=== PATIENT | female | born 1965 | race Caucasian/White ===

== ENCOUNTER 2021-05-13 10:14 | Inpatient (IN) | payer MEDICARE, OTHER ==
[~2021-05-13] VITALS: Ht 162.6 cm; Wt 72.1 kg
[~2021-05-13 10:14] MED LIST: NORCO 5-325 TA1 EACH PO
[2021-05-13 12:05] LABS: HEMOGLOBIN 15.9 gm/dl (12.3-15.3); RED BLOOD COUNT 5.06 M/UL (4.00-5.10); WHITE BLOOD COUNT 12.6 K/UL (4.5-11.0)
[2021-05-13 12:51] LABS: BUN/CREATININE RATIO 35 (0-10)
[2021-05-13] MEDS ORDERED: BREZTRI AEROS10.7 GM INH (17:41)
[2021-05-13] MEDS ORDERED: FLONASE ALLER15.8 ML (17:42)
[2021-05-13] MEDS ORDERED: PLAVIX 75 MG TA75 MG PO (17:42)
[2021-05-13] MEDS ORDERED: LASIX20 MG PO (17:42)
[2021-05-13] MEDS ORDERED: GABAPENTIN300 MG PO (17:43)
[2021-05-13] MEDS ORDERED: COMBIVENT RESPIM4 GM INH (17:44)
[2021-05-13] MEDS ORDERED: HYDROCODON-ACE1 EAC6 PO (17:44)
[2021-05-13] MEDS ORDERED: XTAMPZA ER9 MG PO (17:45)
[2021-05-13] MEDS ORDERED: PREDNISONE5 MG PO (17:46)
[2021-05-13] MEDS ORDERED: PROAIR DIGIHAL90 MCG INH (17:47)
[2021-05-13] MEDS ORDERED: ZANAFLEX4 MG PO (17:47)
[2021-05-13] MEDS ORDERED: PROMETHAZINE HC25 M1 PO (17:48)
[2021-05-13] MEDS ORDERED: AMBIEN5 MG PO (17:48)
[2021-05-13] MEDS ORDERED: ALBUTEROL2.5 MG/3 M NEB (17:49)
[2021-05-14 03:24] LABS: HEMOGLOBIN 15.4 gm/dl (12.3-15.3); RED BLOOD COUNT 4.96 M/UL (4.00-5.10)
[2021-05-14 04:26] LABS: BUN/CREATININE RATIO 46 (0-10)
[2021-05-16 03:00] LABS: BUN/CREATININE RATIO 49 (0-10)
[2021-05-16] MEDS ORDERED: MEDROL DOSEPAK 24 MG PO ×2 (09:35→14:12)
[2021-05-16] MEDS ORDERED: NICOTINE PATCH1 EAC1 TD ×2 (09:53→14:12)
== END 2021-05-16 16:30 | disposition home or self-care (01) | DRG 917 ==
LOC: ER1 10:14 → PROG CARE 14:44 → CDU 14:44 → PROG CARE 18:04
PROVIDERS: Internal Medicine Infectious Disease; Nurse Practitioner; ADMIT Internal Medicine
PROC: 5A09457 Assistance with Respiratory Ventilation, 24-96 Consecutive Hours, Continuous Positive Airway Pressure (ICD-10-PCS; principal; 2021-05-13)
DX: T40.602A Poisoning by unspecified narcotics, intentional self-harm, initial encounter (principal); J96.21 Acute and chronic respiratory failure with hypoxia; Z20.822 Contact with and (suspected) exposure to COVID-19; J96.22 Acute and chronic respiratory failure with hypercapnia; J44.1 Chronic obstructive pulmonary disease with (acute) exacerbation; I10 Essential (primary) hypertension; E78.5 Hyperlipidemia, unspecified; T48.202A Poisoning by unspecified drugs acting on muscles, intentional self-harm, initial encounter; G89.4 Chronic pain syndrome; F17.210 Nicotine dependence, cigarettes, uncomplicated; S39.012A Strain of muscle, fascia and tendon of lower back, initial encounter; Z71.6 Tobacco abuse counseling; Z99.81 Dependence on supplemental oxygen; Z90.49 Acquired absence of other specified parts of digestive tract; Z90.710 Acquired absence of both cervix and uterus; Z91.010 Allergy to peanuts; Z86.73 Personal history of transient ischemic attack (TIA), and cerebral infarction without residual deficits
CPT/HCPCS: 0240U; 36415; 36600; 71045; 80048; 80053; 82550; 82553; 82803; 83605; 83874; 83880; 84484; 85025; 85379; 85610; 85730; 86140; 87040; 93005; 94640; 94660; 94664; 94760; 96365; 96366; 96375; 97161; 99285; J0456; J0696; J1100; J1650; J1885; J2270; J2405; J2920; J2930; J7070; Q9967

== ENCOUNTER 2021-06-15 23:44 | Emergency (ER) | payer MEDICARE, OTHER ==
[~2021-06-15 23:44] MED LIST changes: +ALBUTEROL2.5 MG/3 M NEB; +AMBIEN5 MG PO; +BREZTRI AEROS10.7 GM INH; +COMBIVENT RESPIM4 GM INH; +FLONASE ALLER15.8 ML; +GABAPENTIN300 MG PO; +HYDROCODON-ACE1 EAC6 PO; +LASIX20 MG PO; +MEDROL DOSEPAK 24 MG PO; +NICOTINE PATCH1 EAC1 TD; +PLAVIX 75 MG TA75 MG PO; +PREDNISONE5 MG PO; +PROAIR DIGIHAL90 MCG INH; +PROMETHAZINE HC25 M1 PO; +XTAMPZA ER9 MG PO; +ZANAFLEX4 MG PO
[2021-06-16 01:11] LABS: HEMOGLOBIN 15.1 gm/dl (12.3-15.3); RED BLOOD COUNT 5.08 M/UL (4.00-5.10)
[2021-06-16 02:17] LABS: BUN/CREATININE RATIO 30 (0-10)
[2021-06-16] MEDS ORDERED: ENDOCET 5-3251 EACH PO (09:29)
== END 2021-06-16 09:40 | disposition home or self-care (01) ==
LOC: ER1 23:44
PROVIDERS: Student in an Organized Health Care Education/Training Program
DX: R07.9 Chest pain, unspecified (principal); R10.9 Unspecified abdominal pain; J44.9 Chronic obstructive pulmonary disease, unspecified; M54.6 Pain in thoracic spine; Z86.73 Personal history of transient ischemic attack (TIA), and cerebral infarction without residual deficits; Z85.828 Personal history of other malignant neoplasm of skin
CPT/HCPCS: 71045; 80048; 82550; 82553; 83880; 84484; 85025; 85379; 93005; 96374; 96376; 99285; J1170; Q9967

== ENCOUNTER → 2021-06-18 | Outpatient (CLI) | payer MEDICARE, OTHER ==
[~2021-06-18] MED LIST changes: +ENDOCET 5-3251 EACH PO
[2021-06-18 17:34] LABS: BUN/CREATININE RATIO 30 (0-10)
== END ==
LOC: LAB 16:48
PROVIDERS: Internal Medicine Pulmonary Disease
DX: R09.02 Hypoxemia (principal)
CPT/HCPCS: 36415; 36600; 80048; 82803

== ENCOUNTER 2021-09-27 02:16 | Inpatient (IN) | payer MEDICARE, OTHER ==
[~2021-09-27] VITALS: Ht 162.6 cm; Wt 70.0 kg
[~2021-09-27 02:16] MED LIST changes: +HYDROCODON-ACE1 EAC2 PO; -HYDROCODON-ACE1 EAC6 PO
[2021-09-27 03:02] LABS: HEMOGLOBIN 15.2 gm/dl (12.3-15.3); RED BLOOD COUNT 5.11 M/UL (4.00-5.10)
[2021-09-27 03:27] LABS: BUN/CREATININE RATIO 36 (0-10)
[2021-09-27] MEDS ORDERED: ALPRAZOLAM1 MG PO (11:46)
[2021-09-27] MEDS ORDERED: HYDROCODON-ACE1 EAC6 PO (11:47)
[2021-09-27] MEDS ORDERED: LOPRESSOR 25 MG25 MG PO (11:48)
[2021-09-27] MEDS ORDERED: TRELEGY ELLIPT1 EAC1 INH (11:49)
[2021-09-27] MEDS ORDERED: XTAMPZA ER9 MG PO (11:50)
[2021-09-27] MEDS ORDERED: PRENATAL VITAM1 EAC8 PO (11:55)
[2021-09-28 04:09] LABS: HEMOGLOBIN 14.5 gm/dl (12.3-15.3); RED BLOOD COUNT 4.86 M/UL (4.00-5.10)
[2021-09-28 04:13] LABS: WHITE BLOOD COUNT 8.1 K/UL (4.5-11.0)
[2021-09-28 04:39] LABS: BUN/CREATININE RATIO 49 (0-10)
[2021-09-30 02:22] LABS: HEMOGLOBIN 13.4 gm/dl (12.3-15.3); RED BLOOD COUNT 4.57 M/UL (4.00-5.10); WHITE BLOOD COUNT 9.2 K/UL (4.5-11.0)
[2021-09-30 02:51] LABS: BUN/CREATININE RATIO 62 (0-10)
[2021-10-01 02:11] LABS: BUN/CREATININE RATIO 70 (0-10)
[2021-10-01 03:34] LABS: HEMOGLOBIN 13.3 gm/dl (12.3-15.3); RED BLOOD COUNT 4.52 M/UL (4.00-5.10); WHITE BLOOD COUNT 9.6 K/UL (4.5-11.0)
[2021-10-02 01:49] LABS: HEMOGLOBIN 13.9 gm/dl (12.3-15.3); RED BLOOD COUNT 4.71 M/UL (4.00-5.10); WHITE BLOOD COUNT 10.4 K/UL (4.5-11.0)
[2021-10-02 01:56] LABS: BUN/CREATININE RATIO 67 (0-10)
[2021-10-03 02:17] LABS: HEMOGLOBIN 13.2 gm/dl (12.3-15.3); RED BLOOD COUNT 4.43 M/UL (4.00-5.10); WHITE BLOOD COUNT 11.3 K/UL (4.5-11.0)
[2021-10-03 02:39] LABS: BUN/CREATININE RATIO 78 (0-10)
[2021-10-04 01:38] LABS: HEMOGLOBIN 13.6 gm/dl (12.3-15.3); RED BLOOD COUNT 4.61 M/UL (4.00-5.10); WHITE BLOOD COUNT 13.7 K/UL (4.5-11.0)
[2021-10-04 02:13] LABS: BUN/CREATININE RATIO 66 (0-10)
[2021-10-05 02:10] LABS: HEMOGLOBIN 14.4 gm/dl (12.3-15.3); RED BLOOD COUNT 4.83 M/UL (4.00-5.10); WHITE BLOOD COUNT 16.7 K/UL (4.5-11.0)
[2021-10-05 03:03] LABS: BUN/CREATININE RATIO 60 (0-10)
[2021-10-05 14:10] LABS: HEMOGLOBIN 13.9 gm/dl (12.3-15.3); RED BLOOD COUNT 4.66 M/UL (4.00-5.10); WHITE BLOOD COUNT 15.2 K/UL (4.5-11.0)
[2021-10-05] MEDS ORDERED: LOPRESSOR 25 MG25 MG PO (16:11)
[2021-10-05] MEDS ORDERED: DIAMOX 250 MG250 MG PO (16:11)
[2021-10-05] MEDS ORDERED: COLACE100 MG PO (16:20)
== END 2021-10-05 17:13 | disposition home health service (06) | DRG 189 ==
LOC: ER1 02:16 → CDU 08:58 → PROG CARE 08:58
PROVIDERS: Internal Medicine; Physician Assistant; Physician Assistant Medical; ADMIT Internal Medicine
PROC: 5A09357 Assistance with Respiratory Ventilation, Less than 24 Consecutive Hours, Continuous Positive Airway Pressure (ICD-10-PCS; principal; 2021-09-27)
PROC: 5A09457 Assistance with Respiratory Ventilation, 24-96 Consecutive Hours, Continuous Positive Airway Pressure (ICD-10-PCS; 2021-09-27)
PROC: 5A0935A Assistance with Respiratory Ventilation, Less than 24 Consecutive Hours, High Flow/Velocity Cannula (ICD-10-PCS; 2021-09-30)
PROC: 5A09357 Assistance with Respiratory Ventilation, Less than 24 Consecutive Hours, Continuous Positive Airway Pressure (ICD-10-PCS; 2021-09-30)
PROC: 5A0935A Assistance with Respiratory Ventilation, Less than 24 Consecutive Hours, High Flow/Velocity Cannula (ICD-10-PCS; 2021-09-30)
PROC: 5A09357 Assistance with Respiratory Ventilation, Less than 24 Consecutive Hours, Continuous Positive Airway Pressure (ICD-10-PCS; 2021-09-30)
PROC: 5A0935A Assistance with Respiratory Ventilation, Less than 24 Consecutive Hours, High Flow/Velocity Cannula (ICD-10-PCS; 2021-10-01)
PROC: 5A09357 Assistance with Respiratory Ventilation, Less than 24 Consecutive Hours, Continuous Positive Airway Pressure (ICD-10-PCS; 2021-10-02)
PROC: 5A0935A Assistance with Respiratory Ventilation, Less than 24 Consecutive Hours, High Flow/Velocity Cannula (ICD-10-PCS; 2021-10-02)
PROC: 5A09357 Assistance with Respiratory Ventilation, Less than 24 Consecutive Hours, Continuous Positive Airway Pressure (ICD-10-PCS; 2021-10-03)
PROC: 5A0935A Assistance with Respiratory Ventilation, Less than 24 Consecutive Hours, High Flow/Velocity Cannula (ICD-10-PCS; 2021-10-03)
PROC: 5A09357 Assistance with Respiratory Ventilation, Less than 24 Consecutive Hours, Continuous Positive Airway Pressure (ICD-10-PCS; 2021-10-03)
PROC: 5A0935A Assistance with Respiratory Ventilation, Less than 24 Consecutive Hours, High Flow/Velocity Cannula (ICD-10-PCS; 2021-10-03)
PROC: 5A09357 Assistance with Respiratory Ventilation, Less than 24 Consecutive Hours, Continuous Positive Airway Pressure (ICD-10-PCS; 2021-10-04)
PROC: 5A0935A Assistance with Respiratory Ventilation, Less than 24 Consecutive Hours, High Flow/Velocity Cannula (ICD-10-PCS; 2021-10-04)
DX: J96.22 Acute and chronic respiratory failure with hypercapnia (principal); I69.351 Hemiplegia and hemiparesis following cerebral infarction affecting right dominant side; Z20.822 Contact with and (suspected) exposure to COVID-19; E66.2 Morbid (severe) obesity with alveolar hypoventilation; F11.20 Opioid dependence, uncomplicated; J44.9 Chronic obstructive pulmonary disease, unspecified; F17.210 Nicotine dependence, cigarettes, uncomplicated; G89.4 Chronic pain syndrome; I10 Essential (primary) hypertension; M54.9 Dorsalgia, unspecified; F41.9 Anxiety disorder, unspecified; I45.10 Unspecified right bundle-branch block; J96.21 Acute and chronic respiratory failure with hypoxia; D72.829 Elevated white blood cell count, unspecified; E78.5 Hyperlipidemia, unspecified; Z90.710 Acquired absence of both cervix and uterus; Z98.890 Other specified postprocedural states; Z91.14 Patient's other noncompliance with medication regimen; Z68.24 Body mass index [BMI] 24.0-24.9, adult; Z90.49 Acquired absence of other specified parts of digestive tract
CPT/HCPCS: 0240U; 36415; 36600; 71045; 71046; 74019; 80048; 80053; 82550; 82553; 82803; 82962; 83036; 83605; 83735; 83880; 84132; 84484; 85025; 85027; 86140; 87040; 93005; 94640; 94660; 94664; 94760; 96374; 96375; 99285; C1751; J0456; J0696; J1650; J1885; J2405; J2920; J2930; J7030